=== PATIENT | male | born 1950 | race Caucasian/White ===

== ENCOUNTER 2021-06-08 01:04 | Emergency (ER) | payer MEDICARE, BC ==
--- NOTE | 2021-06-08 01:50 | EDM.PDOC ---
ED HPI GENERAL MEDICAL PROBLEM - General Chief Complaint: Syncope Stated Complaint: [facility] Time Seen by Provider: 06/08/21 01:44 - History of Present Illness INITIAL COMMENTS - FREE TEXT/NARRATIVE: 70-year-old male presents the emergency room with chest pain and a syncopal event. Patient does not have a history of coronary artery disease or heart problems. The patient has had some chest discomfort through the evening. Short time ago the patient got up to go to the bathroom and on his way back to bed he made it to the bed but passed out and hit the floor. EMS was called patient was alert and oriented at the time EMS picked him up. At this time the patient complains of left-sided chest discomfort this radiates up into his neck to the bottom of his ear and into his left shoulder. The patient does not have a smoking history. He is treated for hypertension and hyperlipidemia. He rates his pain as a 3 out of 10 Left Neck Pain Score (Numeric/FACES): 5 - Related Data Allergies Allergy/AdvReac Type Severity Reaction Status Date / Time No Known Allergies Allergy Verified 06/08/21 01:14 Home Meds: Home Meds Aspirin [Halfprin] 81 mg PO DAILY 02/10/14 [History] Lisinopril 10 mg PO DAILY 02/10/14 [History] Omeprazole [Prilosec] 20 mg PO DAILY 02/10/14 [History] Rosuvastatin [Crestor] 0 mg PO DAILY 02/10/14 [History] Past Medical History Cardiovascular History: Reports: High Cholesterol, Hypertension Gastrointestinal History: Reports: GERD - Infectious Disease History Infectious Disease History: Reports: Novel Coronavirus - Past Surgical History GI Surgical History: Reports: Cholecystectomy Social & Family History - Family History Family Medical History: No Pertinent Family History - Tobacco Use Tobacco Use Status *Q: Never Tobacco User Second Hand Smoke Exposure: No - Caffeine Use Caffeine Use: Reports: Coffee - Alcohol Use Days Per Week of Alcohol Use: 7 Number of Drinks Per Day: 1 Total Drinks Per Week: 7 - Recreational Drug Use Recreational Drug Use: No ED ROS GENERAL - Review of Systems Review Of Systems: See Below Constitutional: Reports: No Symptoms HEENT: Reports: No Symptoms Respiratory: Reports: No Symptoms Cardiovascular: Reports: Chest Pain, Syncope Endocrine: Reports: No Symptoms GI/Abdominal: Reports: No Symptoms : Reports: No Symptoms Musculoskeletal: Reports: No Symptoms Skin: Reports: No Symptoms Neurological: Reports: Syncope ED EXAM, GENERAL - Physical Exam Exam: See Below General Appearance: Alert, No Apparent Distress Head: Atraumatic, Normocephalic Neck: Normal Inspection, Supple, Non-Tender, Full Range of Motion. No: Limited Range of Motion, Lymphadenopathy (L), Lymphadenopathy (R), Tender Lateral, Tender Midline, Thyromegaly Respiratory/Chest: No Respiratory Distress, Lungs Clear, Normal Breath Sounds Cardiovascular: Regular Rate, Rhythm, No Edema, No Murmur GI/Abdominal: Normal Bowel Sounds, Soft, Non-Tender Back Exam: Normal Inspection. No: CVA Tenderness (L), CVA Tenderness (R), Vertebral Tenderness Extremities: Normal Inspection, No Pedal Edema Neurological: Alert, Oriented, Normal Cognition Skin Exam: Warm, Dry, Intact #1 Interpretation EKG Date: 06/08/21 Rhythm: NSR Rate (Beats/Min): 55 [place]: Normal P-Wave: Present QRS: Normal ST-T: Normal QT: Normal Comparison: No Change (Significant change noted from February 10, 2014 the rate then was 57) Course - Vital Signs Last Recorded V/S: Last Vital Signs Temp 36.4 C 06/08/21 01:08 Pulse 55 L 06/08/21 01:08 Resp 17 06/08/21 01:08 BP 100/62 06/08/21 01:08 Pulse Ox 92 L 06/08/21 01:08 Orthostatic Blood Pressure [ 98/63 Sitting] Orthostatic Blood Pressure [ 96/60 Supine] - Orders/Labs/Meds Orders: Active Orders 24 hr Category Date Time Status Chest 1V Frontal [CR] Stat Exams 06/08/21 01:51 Taken Labs: Laboratory Tests 06/08/21 06/08/21 06/08/21 Range/Units 01:30 02:10 02:10 WBC 5.56 (4.23-9.07) K/mm3 RBC 4.07 L (4.63-6.08) M/mm3 Hgb 13.3 L D (13.7-17.5) gm/dl Hct 39.6 L (40.1-51.0) % MCV 97.3 H D (79.0-92.2) fl MCH 32.7 H (25.7-32.2) pg MCHC 33.6 (32.2-35.5) g/dl RDW Std Deviation 43.6 (35.1-43.9) fL Plt Count 179 D (163-337) K/mm3 MPV 10.1 (9.4-12.3) fl Neut % (Auto) 67.0 (34.0-67.9) % Lymph % (Auto) 22.7 (21.8-53.1) % [place] % (Auto) 7.0 (5.3-12.2) % Eos % (Auto) 2.9 (0.8-7.0) Baso % (Auto) 0.2 (0.1-1.2) % Neut # (Auto) 3.73 (1.78-5.38) K/mm3 Lymph # (Auto) 1.26 L (1.32-3.57) K/mm3 [place] # (Auto) 0.39 (0.30-0.82) K/mm3 Eos # (Auto) 0.16 (0.04-0.54) K/mm3 Baso # (Auto) 0.01 (0.01-0.08) K/mm3 PT 10.5 (9.7-12.0) SECONDS INR 0.94 APTT 21.8 (21.7-31.4) SECONDS D-Dimer, Quantitative < 0.19 L (0.19-0.50) mg/L Sodium (136-145) mEq/L Potassium (3.5-5.1) mEq/L Chloride (98-107) mEq/L Carbon Dioxide (21-32) mEq/L Anion Gap (5-15) BUN (7-18) mg/dL Creatinine (0.7-1.3) mg/dL Est Cr Clr Drug Dosing mL/min Estimated GFR (MDRD) (>60) mL/min BUN/Creatinine Ratio (14-18) Glucose (70-99) mg/dL Calcium (8.5-10.1) mg/dL Magnesium (1.8-2.4) mg/dL Total Bilirubin (0.2-1.0) mg/dL AST (15-37) U/L ALT (16-63) U/L Alkaline Phosphatase (46-116) U/L Troponin I (0.00-0.056) ng/mL Total Protein (6.4-8.2) g/dl Albumin (3.4-5.0) g/dl Globulin gm/dL Albumin/Globulin Ratio (1-2) Influenza Type A RNA Negative (NEGATIVE) Influenza Type B RNA Negative (NEGATIVE) SARS-CoV-2 RNA (IAN) Negative (NEGATIVE) 06/08/21 06/08/21 Range/Units 02:10 04:45 WBC (4.23-9.07) K/mm3 RBC (4.63-6.08) M/mm3 Hgb (13.7-17.5) gm/dl Hct (40.1-51.0) % MCV (79.0-92.2) fl MCH (25.7-32.2) pg MCHC (32.2-35.5) g/dl RDW Std Deviation (35.1-43.9) fL Plt Count (163-337) K/mm3 MPV (9.4-12.3) fl Neut % (Auto) (34.0-67.9) % Lymph % (Auto) (21.8-53.1) % [place] % (Auto) (5.3-12.2) % Eos % (Auto) (0.8-7.0) Baso % (Auto) (0.1-1.2) % Neut # (Auto) (1.78-5.38) K/mm3 Lymph # (Auto) (1.32-3.57) K/mm3 [place] # (Auto) (0.30-0.82) K/mm3 Eos # (Auto) (0.04-0.54) K/mm3 Baso # (Auto) (0.01-0.08) K/mm3 PT (9.7-12.0) SECONDS INR APTT (21.7-31.4) SECONDS D-Dimer, Quantitative (0.19-0.50) mg/L Sodium 141 (136-145) mEq/L Potassium 3.6 (3.5-5.1) mEq/L Chloride 103 (98-107) mEq/L Carbon Dioxide 27 (21-32) mEq/L Anion Gap 14.6 (5-15) BUN 27 H (7-18) mg/dL Creatinine 1.4 H (0.7-1.3) mg/dL Est Cr Clr Drug Dosing 43.04 mL/min Estimated GFR (MDRD) 50 (>60) mL/min BUN/Creatinine Ratio 19.3 H (14-18) Glucose 145 H (70-99) mg/dL Calcium 8.6 (8.5-10.1) mg/dL Magnesium 1.7 L (1.8-2.4) mg/dL Total Bilirubin 0.3 (0.2-1.0) mg/dL AST 15 (15-37) U/L ALT 33 (16-63) U/L Alkaline Phosphatase 55 (46-116) U/L Troponin I < 0.017 < 0.017 (0.00-0.056) ng/mL Total Protein 6.6 (6.4-8.2) g/dl Albumin 3.6 (3.4-5.0) g/dl Globulin 3.0 gm/dL Albumin/Globulin Ratio 1.2 (1-2) Influenza Type A RNA (NEGATIVE) Influenza Type B RNA (NEGATIVE) SARS-CoV-2 RNA (IAN) (NEGATIVE) Meds: Medications Discontinued Medications Generic Name Dose Route Start Last Admin Trade Name Freq PRN Reason Stop Dose Admin Aspirin 324 mg 06/08/21 02:10 06/08/21 02:22 Aspirin 81 Mg Tab.Chew PO 06/08/21 02:11 324 mg ONETIME ONE Administration Fentanyl 25 mcg 06/08/21 04:45 06/08/21 04:50 Fentanyl 100 Mcg/2 Ml Sdv IVPUSH 06/08/21 04:46 25 mcg ONETIME ONE Administration - Re-Assessments/Exams Free Text/Narrative Re-Assessment/Exam: 06/08/21 04:44 Nondiagnostic thus far we will check a second troponin. Patient is taking lisinopril hydrochlorothiazide it may be reasonable to stop this. I been watching his blood pressure to see if it would go up before giving him nitro and it just has not I will try him on some fentanyl. He does say that his chest pain is improving perhaps up to 50%. But at the most he says it was a 06/08/21 06:27 The patient was given a single dose of fentanyl and his pain has remained gone his troponins have been negative x2 blood pressures on the low side. He has been taking lisinopril hydrochlorothiazide 10/12.5. I suspect a lot of his symptoms are his blood pressures been too low. He doses this in the evening. At this point I will have him hold his blood pressure medication. With close f ollow-up in the clinic. Patient is doing well on room air at 94 to 95% Departure - Departure Time of Disposition: 06:29 Disposition: Home, Self-Care 01 Clinical Impression: Syncopal episodes, Hypotension - Discharge Information Referrals: Basim Morrison MD [Primary Care Provider] - Forms: ED Department Discharge Additional Instructions: Return to the emergency room with any questions problems or worsening symptoms. Hold your blood pressure medication. Increase your fluid intake water Gatorade and that sort. Follow-up with your regular physician later this week for recheck. Sepsis Event Note (ED) - Evaluation Sepsis Screening Result: No Definite Risk - Focused Exam Vital Signs: Vital Signs Temp Pulse Resp BP Pulse Ox 06/08/21 01:08 36.4 C 55 L 17 100/62 92 L - My Orders Last 24 Hours: My Active Orders 06/08/21 01:51 Chest 1V Frontal [CR] Stat - Assessment/Plan Last 24 Hours: My Active Orders 06/08/21 01:51 Chest 1V Frontal [CR] Stat
[2021-06-08] MEDS ORDERED: Aspirin 81 MG Tab.Chew PO ONE (02:10)
[2021-06-08 02:13] LABS: CORONAVIRUS COVID-19 NAA NEGATIVE (NEGATIVE)
[2021-06-08] MEDS ORDERED: fentaNYL 100 MCG/2 ML SDV IVPUSH ONE (04:45)
--- NOTE | 2021-06-08 06:52 | CR ---
Chest: Portable view of the chest was obtained. Comparison: Prior chest x-ray of 02/10/14. Heart size and mediastinum are within normal limits. Lungs show no acute parenchymal change. Bony structures show nothing acute. Impression: 1. Nothing acute is seen on portable chest x-ray. 2. No change is seen from prior chest x-ray. Diagnostic code #1
== END 2021-06-08 06:50 | disposition home or self-care (01) ==
LOC: JD.ED 01:04
DX: I95.9 Hypotension, unspecified (principal); R55 Syncope and collapse; E78.00 Pure hypercholesterolemia, unspecified; I10 Essential (primary) hypertension; K21.9 Gastro-esophageal reflux disease without esophagitis; Z79.899 Other long term (current) drug therapy; Z20.822 Contact with and (suspected) exposure to COVID-19
CPT/HCPCS: 0240U; 36415; 71045; 80053; 83735; 84484; 85025; 85379; 85610; 85730; 93005; 96374; 99285; A9270; J3010

== ENCOUNTER 2023-12-28 09:49 | Day surgery (SDC) | payer MEDICARE, BC ==
[~2023-12-28 09:49] MED LIST: Sodium Chloride 0.9% 10 ML Syringe FLUSH PRN; Sodium Chloride 0.9% 10 ML Syringe FLUSH SCH
[2023-12-28] MEDS: Lactated Ringers 1,000 ML IV SCH (10:05)
[2023-12-28] MEDS ORDERED: Propofol 200 MG/20 ML SDV ONE ×2 (10:36→11:48)
[2023-12-28] MEDS ORDERED: Lidocaine 1% 4 ML ONE (10:37)
== END 2023-12-28 13:38 | disposition home or self-care (01) ==
LOC: JD.SDS 09:49
PROVIDERS: ATTEND Surgery
DX: Z12.11 Encounter for screening for malignant neoplasm of colon (principal); D12.3 Benign neoplasm of transverse colon; D12.2 Benign neoplasm of ascending colon; K63.5 Polyp of colon; K57.30 Diverticulosis of large intestine without perforation or abscess without bleeding; K21.9 Gastro-esophageal reflux disease without esophagitis; I12.9 Hypertensive chronic kidney disease with stage 1 through stage 4 chronic kidney disease, or unspecified chronic kidney disease; E11.22 Type 2 diabetes mellitus with diabetic chronic kidney disease; N18.31 Chronic kidney disease, stage 3a; E78.00 Pure hypercholesterolemia, unspecified; Z79.82 Long term (current) use of aspirin; Z79.899 Other long term (current) drug therapy
CPT/HCPCS: 43239; 45380; 45381; J2704; J7120; J3490

== ENCOUNTER 2024-09-19 08:02 | Day surgery (SDC) | payer MEDICARE, OTHER ==
[2024-09-19] MEDS: Lactated Ringers 1,000 ML IV SCH (08:30)
[2024-09-19] MEDS ORDERED: Propofol 200 MG/20 ML SDV ONE ×2 (09:04→09:05)
== END 2024-09-19 10:55 | disposition home or self-care (01) ==
LOC: JD.SDS 08:02
PROVIDERS: ATTEND Surgery
DX: Z12.11 Encounter for screening for malignant neoplasm of colon (principal); D12.2 Benign neoplasm of ascending colon; K57.30 Diverticulosis of large intestine without perforation or abscess without bleeding; K64.8 Other hemorrhoids; Z86.0101 Personal history of adenomatous and serrated colon polyps; I12.9 Hypertensive chronic kidney disease with stage 1 through stage 4 chronic kidney disease, or unspecified chronic kidney disease; E11.22 Type 2 diabetes mellitus with diabetic chronic kidney disease; N18.31 Chronic kidney disease, stage 3a; K21.9 Gastro-esophageal reflux disease without esophagitis; E78.00 Pure hypercholesterolemia, unspecified; E66.9 Obesity, unspecified; Z79.899 Other long term (current) drug therapy
CPT/HCPCS: 45380; J2704; J7120; 00811; 99100